=== PATIENT | male | born 1960 | race Caucasian/White ===

== ENCOUNTER 2021-07-14 16:26 | Inpatient (IN) | payer MEDICARE, MEDICAID ==
[~2021-07-14] VITALS: Ht 175.3 cm; Wt 122.6 kg
[2021-07-14] VITALS (9 sets, daily range): BP systolic 73–126; BP diastolic 54–69
[~2021-07-14 16:26] MED LIST: APIX5TAB3 PO; CARV-50 PO; CLOP75TA15 PO; INSU100V36 SQ; INSU300I SQ; ISOS30TA84 PO; LACT1CAP65 PO; LOSA50TA64 PO; MAGN200T PO; METF500T PO; NITR0.4T51 SL; OMEG1CAP46 PO; UBID100C16 PO; [UNRECOGNIZED DRUG - OTHER]; etomidate 2mg/ml inj. ONE; heparin 10,000 units/1 ML INJ ONE; heparin, porcine-25,000 units/D5-250ml premix IV ONE
[2021-07-14] MEDS ORDERED: heparin 10,000 units/1 ML INJ IV PRN (16:45)
[2021-07-14] MEDS ORDERED: heparin 25,000 UNIT/250ml bag 250 ML IV SCH (16:45)
[2021-07-14] MEDS ORDERED: heparin 10,000 units/1 ML INJ IV ONE (16:45)
--- NOTE | 2021-07-14 16:48 | NUR ---
DR VIVAS DISCUSSED WITH DAUGHTER IF PT CODES AGAIN NO ATTEMPT OF CPR WILL BE MADE
[2021-07-14] MEDS ORDERED: NORepinephrine inj. 8 MG in dextrose 5%-water 242 ML IV SCH (16:50)
[2021-07-14] MEDS ORDERED: DOBUTamine-DoBUTrex 500mg/D5W 250 ML IV SCH (16:50)
[2021-07-14 16:53] LABS: EOSINOPHILS # (AUTO) 0.1 X10'3 (0-0.9); EOSINOPHILS % (AUTO) 0.4 % (0-6); HEMOGLOBIN 12.1 g/dl (14.0-17.9); MEAN PLATELET VOLUME 8.8 FL (7.4-10.4); MONOCYTES # (AUTO) 0.8 X10'3 (0-0.9); MONOCYTES % (AUTO) 4.8 % (2-12); NEUTROPHILS % (AUTO) 41.6 % (42-75)
[2021-07-14 16:55] LABS: BASOPHILS % (AUTO) 0.3 % (0-1); HEMATOCRIT 37.7 % (42.0-52.0); LYMPHOCYTES # (AUTO) 8.6 X10'3 (1.1-4.8); LYMPHOCYTES % (AUTO) 52.9 % (21-51); MEAN CORPUSCULAR HEMOGLOBIN 26.7 PG (27.0-31.0); MEAN CORPUSCULAR HGB CONC 32.2 g/dL (33.0-36.5); NEUTROPHILS # (AUTO) 6.7 X10'3 (1.8-7.7); PLATELET COUNT 261 X10'3 (140-440); RED BLOOD COUNT 4.53 X10'6 (4.70-6.10); RED CELL DISTRIBUTION WIDTH 16.1 % (11.5-14.5); WHITE BLOOD COUNT 16.2 X10'3 (4.5-11.0)
[2021-07-14] MEDS ORDERED: midazolam 100mg in NS 100ml 100 ML IV PRN ×2 (16:55→23:20)
[2021-07-14] MEDS ORDERED: NOREPINEPHRINE BITARTRATE/D5W 250 ML IV SCH ×2 (17:02→20:35)
[2021-07-14 17:10] LABS: APTT 28 SECONDS (22-32)
[2021-07-14 17:11] LABS: ALANINE AMINOTRANSFERASE 245 U/L (12-78); ALBUMIN 3.4 G/DL (3.4-5.0); ALBUMIN/GLOBULIN RATIO 0.9 (1.1-1.5); ALKALINE PHOSPHATASE 75 IU/L (46-116); ANION GAP 15 (8-16); ASPARTATE AMINO TRANSFERASE 367 U/L (10-37); BILIRUBIN,TOTAL 0.3 MG/DL (0.1-1.0); BLOOD UREA NITROGEN 13 MG/DL (7-18); CALCIUM 8.3 MG/DL (8.5-10.1); CHLORIDE 99 MMOL/L (99-107); CREATININE 1.18 MG/DL (0.60-1.10); GLUCOSE 357 MG/DL (70-104); SODIUM 136 MMOL/L (135-145); TOTAL CARBON DIOXIDE 21.6 MMOL/L (24-32); TOTAL PROTEIN 7.1 G/DL (6.4-8.2); eGFR 62 ML/MIN
[2021-07-14 17:12] LABS: POTASSIUM 3.2 MMOL/L (3.5-5.1)
[2021-07-14] MEDS ORDERED: midazolam 1 mg/ML 2ml injection ONE ×3 (17:20→18:38)
[2021-07-14] MEDS ORDERED: verapamil 2.5 mg/ml inj IV ONE (17:20)
[2021-07-14] MEDS ORDERED: nitroGLYCERIN-Tridil 50MG/D5W 250 ML IV ONE (17:20)
[2021-07-14] MEDS ORDERED: fentaNYL/PF 50MCG/1 ML 2ML syringe ONE (17:20)
[2021-07-14] MEDS ORDERED: LIDOCAINE 1% w/preservative (10 MG/ML) inj. 10mL VIAL ONE (17:21)
[2021-07-14] MEDS ORDERED: iohexol 350 MG/1 ML 200ml bottle ONE (17:21)
[2021-07-14] MEDS ORDERED: heparin 1,000unit/ml 10ml vial 10 ML ONE (17:21)
[2021-07-14] MEDS ORDERED: magnesium 2GM in 50ml NS 50 ML IV ONE (17:30)
[2021-07-14] MEDS ORDERED: vasopressin inj. 40 UNIT in normal saline 50ml IV soln 38 ML IV SCH (17:50)
[2021-07-14] MEDS ORDERED: INSU300I SQ (17:53)
[2021-07-14] MEDS ORDERED: METF-436 PO (17:53)
[2021-07-14] MEDS ORDERED: LOSA50TA64 PO (17:53)
[2021-07-14] MEDS ORDERED: APIX5TAB3 PO (17:53)
[2021-07-14] MEDS ORDERED: CLOP75TA15 PO (17:53)
[2021-07-14] MEDS ORDERED: NITR0.4T51 SL (17:53)
[2021-07-14] MEDS ORDERED: INSU100I8 SQ (17:53)
[2021-07-14] MEDS ORDERED: RANO500T3 PO (17:53)
[2021-07-14] MEDS ORDERED: CARV6.252 PO (17:53)
[2021-07-14] MEDS ORDERED: ISOS30TA84 PO (17:53)
[2021-07-14 18:04] LABS: MAGNESIUM 2.1 MG/DL (1.5-2.4)
[2021-07-14] MEDS ORDERED: potassium Cl 20mEq/100mL bag 100 ML IV ONE (18:05)
[2021-07-14] MEDS ORDERED: ticagrelor 90mg tablet ONE (18:09)
[2021-07-14] MEDS ORDERED: aspirin 325mg tablet ONE (18:09)
[2021-07-14] MEDS ORDERED: POTASSIUM CHLORIDE 20 MEQ/15 ML oral solution PO ONE (18:15)
--- NOTE | 2021-07-14 19:05 | NUR ---
Patient here from rn cardiac cath into room ICU 2039. I have received report from rn cardiac cath RNs and had the opportunity to ask questions and assume patient care. Patient attached to ventilator by RT. Cooling pads applied and machine started.
[2021-07-14 19:50] LABS: ABG BASE EXCESS -7.7 mmol/L (-2.0-2.0); ABG HCO3 16.6 mmol/L (22.0-26.0); ABG OXYGEN SATURATION 99.2 % (94-97); ABG PCO2 (T) 29.4 mmHg (35.0-48.0); ABG PO2 (T) 206.8 mmHg (75.0-100.0); FCOHb 0.3 % (0.0-3.9); FMetHb 0.3 % (0.0-1.5); FO2Hb 98.6 % (94-97); PATIENT TEMPERATURE 36.3; PEEP 5 cm H2O; RESPIRATORY RATE 20 b/min; TIDAL VOLUME 500 mL; TOTAL HEMOGLOBIN 12.9 G/dl (14.0-18.0)
[2021-07-14] MEDS ORDERED: magnesium 4gm in 100ml NS 100 ML IV PRN (19:55)
[2021-07-14] MEDS ORDERED: potassium CL 10mEq/100ml bag 100 ML IV PRN (19:55)
[2021-07-14] MEDS ORDERED: CISatracurium **Bolus** 2 mg/ml inj IV PRN (19:55)
[2021-07-14] MEDS ORDERED: heparin, porcine 5000 units/ml vial SQ SCH (20:00)
[2021-07-14] MEDS ORDERED: aspirin 81mg, enteric-coated 1 TAB TABLET.DR PO ONE (20:00)
[2021-07-14 20:06] LABS: OXYGEN SATURATION (MIXED VEN) 63.7 % (60-80); PO2 MIXED VENOUS (TEMP COR) 38.5 mmHg (35-46)
[2021-07-14 20:09] LABS: BASOPHILS % (AUTO) 0.1 % (0-1); EOSINOPHILS % (AUTO) 0.1 % (0-6); HEMATOCRIT 36.4 % (42.0-52.0); HEMOGLOBIN 11.8 g/dl (14.0-17.9); LYMPHOCYTES # (AUTO) 1.2 X10'3 (1.1-4.8); LYMPHOCYTES % (AUTO) 5.8 % (21-51); MEAN CORPUSCULAR HEMOGLOBIN 26.3 PG (27.0-31.0); MEAN CORPUSCULAR HGB CONC 32.4 g/dL (33.0-36.5); MEAN CORPUSCULAR VOLUME 81.1 FL (78-98); MEAN PLATELET VOLUME 8.9 FL (7.4-10.4); MONOCYTES # (AUTO) 1.3 X10'3 (0-0.9); MONOCYTES % (AUTO) 6.6 % (2-12); NEUTROPHILS # (AUTO) 17.9 X10'3 (1.8-7.7); NEUTROPHILS % (AUTO) 87.4 % (42-75); PLATELET COUNT 311 X10'3 (140-440); RED BLOOD COUNT 4.49 X10'6 (4.70-6.10); RED CELL DISTRIBUTION WIDTH 15.7 % (11.5-14.5); WHITE BLOOD COUNT 20.4 X10'3 (4.5-11.0)
[2021-07-14 20:22] LABS: ALANINE AMINOTRANSFERASE 618 U/L (12-78); ALBUMIN 3.3 G/DL (3.4-5.0); ALBUMIN/GLOBULIN RATIO 0.9 (1.1-1.5); ALKALINE PHOSPHATASE 75 IU/L (46-116); ANION GAP 15 (8-16); ASPARTATE AMINO TRANSFERASE 824 U/L (10-37); BILIRUBIN,TOTAL 0.6 MG/DL (0.1-1.0); BLOOD UREA NITROGEN 17 MG/DL (7-18); BUN/CREATININE RATIO 13.1 (5.4-32.0); CALCIUM 7.7 MG/DL (8.5-10.1); CHLORIDE 100 MMOL/L (99-107); GLUCOSE 413 MG/DL (70-104); MAGNESIUM 2.1 MG/DL (1.5-2.4); PHOSPHORUS 5.3 MG/DL (2.3-4.5); SODIUM 133 MMOL/L (135-145); TOTAL CARBON DIOXIDE 18.1 MMOL/L (24-32); TOTAL PROTEIN 6.8 G/DL (6.4-8.2); eGFR 56 ML/MIN
[2021-07-14 20:25] LABS: POTASSIUM 6.3 MMOL/L (3.5-5.1)
[2021-07-14] MEDS ORDERED: epiNEPHrine inj 5 MG in normal saline 250ml IV soln 245 ML IV SCH (20:25)
[2021-07-14] MEDS ORDERED: FENTANYL-0.9 % NACL/PF 100 ML IV SCH (20:25)
[2021-07-14] MEDS ORDERED: NORepinephrine 8mg/ 250ml NS 250 ML IV SCH (20:40)
[2021-07-14 20:42] LABS: APTT 100 SECONDS (22-32)
[2021-07-14] MEDS ORDERED: sodium bicarbonate (8.4%) 1 mEq/ml syringe ONE (20:54)
[2021-07-14] MEDS ORDERED: insulin regular, human 10 units/0.1 ml syringe IV ONE (20:55)
[2021-07-14] MEDS ORDERED: sodium bicarbonate (8.4%) 1 mEq/ml syringe IV ONE (20:55)
[2021-07-14] MEDS: NORepinephrine 8mg/ 250ml NS 250 ML IV SCH (21:29)
--- NOTE | 2021-07-14 22:50 | NUR ---
Cooling in progress. Titrating pressors to maintain MAP per MD orders.
[2021-07-14] MEDS: meperidine/PF 25mg/ml syringe IV SCH (23:08)
[2021-07-14] MEDS: vasopressin inj. 40 UNIT in dextrose 5%-water 50ml 38 ML IV SCH (23:09)
[2021-07-14] MEDS ORDERED: CISatracurium besylate inj. 100 MG in normal saline 100ml IV soln 90 ML IV PRN (23:20)
[2021-07-14] MEDS ORDERED: levetiracetam-NS 1000mg/100ml 100 ML IV ONE (23:45)
[2021-07-15] VITALS: BP 130/76
[2021-07-15] MEDS: meperidine/PF 25mg/ml syringe IV SCH
[2021-07-15] MEDS: Levetiracetam-NS 500mg/100ml 100 ML IV SCH ×2 (00:08→03:22)
[2021-07-15 01:00] VITALS: BP 95/60
[2021-07-15 01:07] VITALS: BP 95/56
[2021-07-15] MEDS ORDERED: amiodarone 150mg/dext, iso-os 100 ML IV ONE (01:15)
--- NOTE | 2021-07-15 01:15 | NUR ---
Patient having increased ectopy with frequent PVCs and runs of vtach. Dr. Chin notified, orders received. Will continue to monitor.
[2021-07-15 02:00] VITALS: BP 121/78
[2021-07-15 02:00] LABS: BASOPHILS % (AUTO) 0.1 % (0-1); EOSINOPHILS % (AUTO) 0 % (0-6); HEMATOCRIT 36.9 % (42.0-52.0); HEMOGLOBIN 12.3 g/dl (14.0-17.9); LYMPHOCYTES # (AUTO) 1.2 X10'3 (1.1-4.8); LYMPHOCYTES % (AUTO) 5.6 % (21-51); MEAN CORPUSCULAR HEMOGLOBIN 27.4 PG (27.0-31.0); MEAN CORPUSCULAR HGB CONC 33.4 g/dL (33.0-36.5); MEAN CORPUSCULAR VOLUME 81.9 FL (78-98); MEAN PLATELET VOLUME 8.7 FL (7.4-10.4); MONOCYTES # (AUTO) 1.2 X10'3 (0-0.9); MONOCYTES % (AUTO) 5.3 % (2-12); NEUTROPHILS # (AUTO) 19.5 X10'3 (1.8-7.7); PLATELET COUNT 302 X10'3 (140-440); RED CELL DISTRIBUTION WIDTH 16.2 % (11.5-14.5); WHITE BLOOD COUNT 21.9 X10'3 (4.5-11.0)
[2021-07-15 02:05] LABS: ALBUMIN 3.2 G/DL (3.4-5.0); ANION GAP 20 (8-16); BLOOD UREA NITROGEN 21 MG/DL (7-18); BUN/CREATININE RATIO 13.1 (5.4-32.0); CALCIUM 7.7 MG/DL (8.5-10.1); CHLORIDE 98 MMOL/L (99-107); MAGNESIUM 2.3 MG/DL (1.5-2.4); SODIUM 133 MMOL/L (135-145); TOTAL CARBON DIOXIDE 15.5 MMOL/L (24-32); eGFR 44 ML/MIN
[2021-07-15 02:06] LABS: APTT 29 SECONDS (22-32)
[2021-07-15 02:08] LABS: GLUCOSE 485 MG/DL (70-104)
[2021-07-15] MEDS ORDERED: Insulin Reg/NS 100units/100mL 100 ML IV SCH (02:20)
[2021-07-15] MEDS ORDERED: dextrose 50%-water 50ml dispensing syringe IV PRN (02:20)
[2021-07-15] MEDS ORDERED: amiodarone/D5 360MG/200ML BAG 200 ML IV SCH (02:20)
[2021-07-15] MEDS ORDERED: insulin Lispro (HumaLOG) vial - multi-dose SQ PRN (02:20)
[2021-07-15] MEDS ORDERED: insulin regular, human 10 units/0.1 ml syringe SQ ONE (02:20)
--- NOTE | 2021-07-15 02:21 | NUR ---
Dr. Chin notified of current critical values and patient's continued arrhythmia. Orders received.
[2021-07-15] MEDS: vasopressin inj. 40 UNIT in dextrose 5%-water 50ml 38 ML IV SCH (02:40)
[2021-07-15] MEDS: NORepinephrine 8mg/ 250ml NS 250 ML IV SCH (02:48)
[2021-07-15] MEDS ORDERED: insulin regular, human 10 units/0.1 ml syringe IV ONE (02:50)
[2021-07-15 03:14] VITALS: BP 104/70
[2021-07-15 03:41] LABS: ABG BASE EXCESS -14.3 mmol/L (-2.0-2.0); ABG HCO3 11.2 mmol/L (22.0-26.0); ABG OXYGEN SATURATION 91.5 % (94-97); ABG PCO2 (T) 19.9 mmHg (35.0-48.0); ABG PO2 (T) 49.8 mmHg (75.0-100.0); FCOHb 0.1 % (0.0-3.9); FMetHb 0.3 % (0.0-1.5); FO2Hb 91.1 % (94-97); PEEP 5 cm H2O; RESPIRATORY RATE 20 b/min; TIDAL VOLUME 500 mL; TOTAL HEMOGLOBIN 13.7 G/dl (14.0-18.0)
[2021-07-15] MEDS ORDERED: fentaNYL/PF 50MCG/1 ML 2ML syringe IV PRN (03:55)
[2021-07-15 04:00] VITALS: BP 92/63
--- NOTE | 2021-07-15 04:05 | NUR ---
0355-Patient's and family at bedside. Dr. Chin at bedside, discussed case with patient's . She wishes to withdraw care stating patient would not want aggressive measures. Orders placed by MD to make patient a DNR with comfort care. 0405-extubated patient to comfort care with RT. Patient's family at bedside.
--- NOTE | 2021-07-15 04:22 | NUR ---
RN IS TO DOCUMENT YES TO ALL APPLICABLE AREAS Pronouncement of :421 1. Time Physician Notified:427 2. Date of :07/15/21 3. Time of : 421 4. DNR/Withdraw life support documented:Y 5. Monitor strip has been placed on chart:Y 6. Assessment process is of one-minute duration and includes following criteria: a) Patient is unresponsive to all stimuli: Y b) Pupils fixed and non-reactive:Y c) Auscultation of precordium reveals absence of heart tones:Y d) Auscultation of lungs reveals absence of breath sounds:Y e) Absence of blood pressure / all vital signs:Y f) QRS complexes are not present on monitor / EKG strip:Y g) Pacer spikes without capture:NA 4. Comments: Belongings went home with family
[2021-07-15] MEDS ORDERED: K and/or MAG REPLACEMENT MC SCH (08:00)
[2021-07-15] MEDS ORDERED: levetiracetam-NS 1000mg/100ml 100 ML IV SCH (08:00)
[2021-07-15] MEDS ORDERED: ticagrelor 90mg tablet PO SCH (08:00)
[2021-07-15] MEDS ORDERED: aspirin 81mg, enteric-coated 1 TAB TABLET.DR PO SCH (08:00)
[2021-07-15] MEDS ORDERED: levetiracetam inj 1,000 MG in normal saline 100ml IV soln 100 ML IV SCH (20:00)
== END 2021-07-15 04:22 | DRG 246 ==
LOC: EDBD 16:27 → ER 16:27 → ICU 2S 19:00
PROVIDERS: ADMIT Internal Medicine Critical Care Medicine; ATTEND Internal Medicine Critical Care Medicine
PROC: 027135Z Dilation of Coronary Artery, Two Arteries with Two Drug-eluting Intraluminal Devices, Percutaneous Approach (ICD-10-PCS; principal; 2021-07-14)
PROC: B41F1ZZ Fluoroscopy of Right Lower Extremity Arteries using Low Osmolar Contrast (ICD-10-PCS; 2021-07-14)
PROC: 5A1935Z Respiratory Ventilation, Less than 24 Consecutive Hours (ICD-10-PCS; 2021-07-14)
PROC: 0BH17EZ Insertion of Endotracheal Airway into Trachea, Via Natural or Artificial Opening (ICD-10-PCS; 2021-07-14)
PROC: 5A12012 Performance of Cardiac Output, Single, Manual (ICD-10-PCS; 2021-07-14)
PROC: 5A2204Z Restoration of Cardiac Rhythm, Single (ICD-10-PCS; 2021-07-14)
PROC: B31H1ZZ Fluoroscopy of Right Upper Extremity Arteries using Low Osmolar Contrast (ICD-10-PCS; 2021-07-14)
DX: I21.01 ST elevation (STEMI) myocardial infarction involving left main coronary artery (principal); J96.01 Acute respiratory failure with hypoxia; I47.2 Ventricular tachycardia; I21.21 ST elevation (STEMI) myocardial infarction involving left circumflex coronary artery; I95.9 Hypotension, unspecified; I25.10 Atherosclerotic heart disease of native coronary artery without angina pectoris; Z20.822 Contact with and (suspected) exposure to COVID-19; I46.9 Cardiac arrest, cause unspecified; I49.01 Ventricular fibrillation; Z79.899 Other long term (current) drug therapy; Z79.4 Long term (current) use of insulin; Z66 Do not resuscitate; Z51.5 Encounter for palliative care
CPT/HCPCS: 31500; 36556; 92950; 92960; 99291; 99292; C9606; 36415; 36600; 70450; 71045; 80048; 80053; 82803; 82810; 82948; 83605; 83735; 83880; 84100; 84484; 85018; 85025; 85610; 85730; 87635; 93005; 94002; 94799; 99152; 99153; A5120; A6258; C1725; C1751; C1769; C1874; C1894; C9803; G0378; J0282; J1644; J1815; J1953; J2175; J2250; J3010; J3480; J3490; J7040; J7060; Q9967